=== PATIENT | female | born 1945 | race Caucasian/White ===

== ENCOUNTER 2018-06-15 11:20 | Emergency (ER) | payer OTHER ==
[~2018-06-15] VITALS: Ht 167.6 cm; Wt 84.3 kg
[2018-06-15 11:51] LABS: HEMATOCRIT 42.6 % (36.0-46.0); HEMOGLOBIN 14.3 G/DL (11.9-15.5); MCHC 33.6 G/DL (30.0-36.0); MCV 86.4 FL (83-99); PLATELET COUNT 261 K/uL (156-360); RBC DIS.WIDTH-CV 12.8 % (11.8-14.6); RBC DIS.WIDTH-SD 40.6 % (39-53); RED BLOOD COUNT 4.93 M/uL (3.80-5.20); WHITE BLOOD COUNT 9.4 K/uL (4.1-10.2)
[2018-06-15 12:14] LABS: ALBUMIN 3.8 G/DL (3.2-4.8); CHLORIDE 103 MEQ/L (99-109); POTASSIUM 4.2 MEQ/L (3.7-5.4); SODIUM 138 MEQ/L (136-147); TOTAL BILIRUBIN 0.5 MG/DL (0.0-1.0)
[2018-06-15 12:20] LABS: ALKALINE PHOSPHATASE 58 IU/L (3-129); ALT (GPT) 7 IU/L (3-49); AST (GOT) 15 IU/L (2-34); CREATININE 0.8 MG/DL (0.6-1.3); GFR ESTIMATE (CALCULATED) > 59 mL/min/; GLUCOSE 118 mg/dL (70-99); TOTAL PROTEIN 6.3 G/DL (6.4-8.3); UREA NITROGEN (BUN) 10 mg/dL (9-23)
[2018-06-15 13:02] LABS: LIPASE 11 U/L (1.0-51.0)
[2018-06-15 13:26] LABS: APPEARANCE CLEAR ((CLEAR)); BILIRUBIN NEGATIVE; BLOOD LARGE; COLOR YELLOW ((YELLOW)); GLUCOSE (STRIP) NEGATIVE; KETONES NEGATIVE; LEUKOCYTES MODERATE; NITRITE NEGATIVE; PROTEIN (STRIP) NEGATIVE
[2018-06-15 13:41] LABS: BACTERIA RARE /HPF; EPITHELIAL CELLS RARE /HPF; MUCUS TRACE /LPF; RED BLOOD CELLS TNTC /HPF (0-5); UCUL ADDED? YES; WHITE BLOOD CELLS 15-20 /HPF (0-5)
[2018-06-15 15:28] LABS: BASOPHIL (%) 0.2 % (0-1); EOSINOPHIL (%) 1.6 % (0-5); EOSINOPHIL COUNT 0.1 K/uL (0-0.3); IMMATURE GRANULOCYTE (%) 0.9 % (0.0-0.7); LYMPHOCYTE (%) 14.2 % (15-42); LYMPHOCYTE COUNT 1.3 K/uL (1.0-2.8); MONOCYTE (%) 7.4 % (3-12); MONOCYTE COUNT 0.7 K/uL (0-0.8); NEUTROPHIL (%) 75.7 % (45-76); NEUTROPHIL COUNT 6.7 K/uL (1.8-6.4)
[2018-06-15] MEDS ORDERED: ZOFRAN ODT4 MG PO (16:02)
[2018-06-15] MEDS ORDERED: PERCOCET 5/31 TABLET PO (16:02)
[2018-06-15 16:18] VITALS: BP 136/83
== END 2018-06-15 16:21 | disposition home or self-care (01) ==
LOC: EME 11:20 → RME 11:20
DX: R10.32 Left lower quadrant pain (principal); R19.03 Right lower quadrant abdominal swelling, mass and lump; N83.9 Noninflammatory disorder of ovary, fallopian tube and broad ligament, unspecified; C78.6 Secondary malignant neoplasm of retroperitoneum and peritoneum; R11.2 Nausea with vomiting, unspecified; R19.7 Diarrhea, unspecified; K44.9 Diaphragmatic hernia without obstruction or gangrene; R18.8 Other ascites; Z90.49 Acquired absence of other specified parts of digestive tract; K57.30 Diverticulosis of large intestine without perforation or abscess without bleeding
CPT/HCPCS: 74177; 80053; 81003; 83690; 85025; 85027; 87086; 99281; 99285; J2405; J3010; J7030